=== PATIENT | male | born 1950 | race Caucasian/White ===

== ENCOUNTER 2017-07-29 06:26 | Inpatient (IN) | payer OTHER ==
[2017-07-29] VITALS (20 sets, daily range): BP systolic 51–124
[~2017-07-29] VITALS: Ht 190.5 cm; Wt 158.8 kg
[2017-07-29] MEDS ORDERED: NACL 0.9% 1,000 ML IV ONE ×6 (06:40→09:15)
[2017-07-29] MEDS ORDERED: RIVA20TA PO (07:03)
[2017-07-29] MEDS ORDERED: LISI40TA4 PO (07:03)
[2017-07-29] MEDS ORDERED: AMLO5TAB4 PO (07:03)
[2017-07-29] MEDS ORDERED: METO50TA7 PO (07:03)
[2017-07-29] MEDS ORDERED: GLUXR500 PO (07:03)
[2017-07-29 07:39] LABS: BASOPHILS % (AUTO) 0.2 % (0.0-2.0); HEMATOCRIT 51.9 % (36-54); HEMOGLOBIN 15.5 g/dL (14.0-18.0); LYMPHOCYTES # (AUTO) 0.9 K/uL (1.0-5.5); LYMPHOCYTES % (AUTO) 7.7 % (20.5-51.5); MEAN CORPUSCULAR HEMOGLOBIN 27 pg (27-31); MEAN CORPUSCULAR HGB CONC 30 % (32-36); MEAN CORPUSCULAR VOLUME 91 fL (79.0-98.0); MONOCYTES # (AUTO) 0.7 K/uL (0.0-1.0); NEUTROPHILS # (AUTO) 10.1 K/uL (1.8-7.7); NEUTROPHILS % (AUTO) 86.1 % (40.0-70.0); RED BLOOD CELL COUNT(AUTO) 5.73 MIL/uL (4.2-6.2); RED CELL DISTRIBUTION WIDTH 14.9 % (9.0-15.0); WHITE BLOOD COUNT (AUTO) 11.7 K/uL (4.8-10.8)
[2017-07-29 07:45] LABS: PLATELET COUNT (AUTO) 178 K/uL (130-430)
[2017-07-29] MEDS ORDERED: NOREPINEPHRINE 4 MG/4 ML VIAL IV ONE ×2 (07:50→13:37)
[2017-07-29] MEDS: NOREPINEPHRINE BITARTRATE 4 MG in NS 246 ML IV ONE ×2 (08:00→11:39)
[2017-07-29] MEDS ORDERED: PIPERACILLIN/TAZO 3.375 GM in NS 50 ML IV ONE (08:00)
[2017-07-29 08:01] LABS: ANION GAP 28 (5-15); CALCIUM 7.9 mg/dL (8.4-11.0); CHLORIDE 103 mmol/L (98-107); CREATININE 4.39 mg/dL (0.55-1.30); POTASSIUM 5.3 mmol/L (3.5-5.1); SODIUM SERUM 142 mmol/L (136-145); UREA NITROGEN, BLOOD 79 mg/dL (8-21)
[2017-07-29 08:11] LABS: GFR AFRICAN AMERICAN 17 mL/min (>90)
[2017-07-29 08:14] LABS: ACETAMINOPHEN 10 ug/mL (1-30); ALANINE AMINOTRANSFERASE 11 U/L (12-78); ALBUMIN 2.7 g/dL (3.4-4.8); ASPARTATE AMINOTRANSFERASE 11 U/L (10-37); TOTAL BILIRUBIN 0.9 mg/dL (0.0-1.0)
[2017-07-29 08:17] LABS: ALCOHOL, BLOOD < 3 mg/dL (<10)
[2017-07-29 08:25] LABS: ACETONE, SERUM SMALL (NEGATIVE)
[2017-07-29] MEDS ORDERED: INSULIN REGULAR, HUMAN 101.01 UNITS in NS 99 ML IV ONE ×2 (08:30)
[2017-07-29] MEDS ORDERED: PIPERACILLIN/TAZOBACTAM 3.375 GM/VIAL (ZOSYN) IV ONE (08:30)
[2017-07-29] MEDS ORDERED: MORPHINE 2 MG/ML INJ. SYRINGE IVP ONE (09:45)
[2017-07-29] MEDS ORDERED: INSULIN REGULAR, HUMAN 101.01 UNITS in NS 99 ML IV PRN ×2 (11:15)
[2017-07-29] MEDS ORDERED: SODIUM BICARBONATE 8.4% JECT 100 MEQ in 0.45% NACL 1,000 ML IV SCH (11:45)
[2017-07-29] MEDS ORDERED: NS 500 ML IV SCH (12:11)
[2017-07-29 12:15] LABS: INR 1.2 (0.80-1.20); PROTHROMBIN TIME 11.7 SECS (9.5-12.5)
[2017-07-29] MEDS ORDERED: DEXTROSE 50% JECT 50 ML DISP.SYRIN IVP PRN ×2 (12:15)
[2017-07-29] MEDS ORDERED: DEXTROSE 50% JECT 50 ML (1 AMP) IVP PRN (12:15)
[2017-07-29] MEDS ORDERED: DEXTROSE 50% JECT 25 ML (1/2 AMP) IVP PRN (12:15)
[2017-07-29] MEDS ORDERED: INSULIN REGULAR, HUMAN 100 UNITS in NS 99 ML IV PRN ×4 (12:15)
[2017-07-29] MEDS ORDERED: SODIUM BICARBONATE 8.4% JECT 50 MEQ in D5W 1,000 ML IV SCH (12:30)
[2017-07-29] MEDS ORDERED: INSULIN REGULAR, HUMAN 100 UNITS/ML, 10 ML VIAL IV ONE (12:45)
[2017-07-29 13:01] LABS: PHOSPHORUS 9.3 mg/dL (2.7-4.5)
[2017-07-29] MEDS ORDERED: DIGOXIN 0.5 MG/2 ML AMP IVP ONE ×3 (13:15→21:30)
[2017-07-29 13:42] LABS: BASOPHILS % (AUTO) 0.2 % (0.0-2.0); HEMATOCRIT 50.8 % (36-54); HEMOGLOBIN 15.5 g/dL (14.0-18.0); LYMPHOCYTES # (AUTO) 0.7 K/uL (1.0-5.5); LYMPHOCYTES % (AUTO) 5.7 % (20.5-51.5); MEAN CORPUSCULAR HEMOGLOBIN 28 pg (27-31); MEAN CORPUSCULAR HGB CONC 31 % (32-36); MEAN CORPUSCULAR VOLUME 90 fL (79.0-98.0); MONOCYTES # (AUTO) 0.5 K/uL (0.0-1.0); MONOCYTES % (AUTO) 3.8 % (1.7-9.3); NEUTROPHILS # (AUTO) 11.6 K/uL (1.8-7.7); NEUTROPHILS % (AUTO) 90.3 % (40.0-70.0); PLATELET COUNT (AUTO) 140 K/uL (130-430); RED BLOOD CELL COUNT(AUTO) 5.65 MIL/uL (4.2-6.2); RED CELL DISTRIBUTION WIDTH 15.2 % (9.0-15.0); WHITE BLOOD COUNT (AUTO) 12.8 K/uL (4.8-10.8)
[2017-07-29] MEDS: PIPERACILLIN/TAZO 3.375/DEX-IS 50 ML IV SCH ×2 (14:22→22:29)
[2017-07-29] MEDS: NOREPINEPHRINE BITARTRATE 4 MG in NS 246 ML IV PRN ×4 (14:30→21:41)
[2017-07-29 14:37] LABS: CALCIUM 7.9 mg/dL (8.4-11.0); CREATININE 4.13 mg/dL (0.55-1.30); POTASSIUM 4.1 mmol/L (3.5-5.1)
[2017-07-29] MEDS: VANCOMYCIN HCL 1,500 MG in NS 250 ML IV SCH (15:38)
[2017-07-29] MEDS: INSULIN REGULAR, HUMAN 100 UNITS in NS 99 ML IV PRN ×2 (17:46)
[2017-07-29 18:16] LABS: CALCIUM 7.9 mg/dL (8.4-11.0); CREATININE 3.86 mg/dL (0.55-1.30); PHOSPHORUS 5.2 mg/dL (2.7-4.5)
[2017-07-29] MEDS ORDERED: NACL 0.9% 1,000 ML IV SCH ×2 (19:00→23:00)
[2017-07-29] MEDS ORDERED: LORazepam 2 MG/ML VIAL IVP ONE (21:30)
[2017-07-29] MEDS ORDERED: LORazepam 2 MG/ML VIAL ONE (21:35)
[2017-07-29] MEDS ORDERED: DIGOXIN 0.5 MG/2 ML AMP ONE (21:36)
[2017-07-29 22:55] LABS: CREATININE 2.84 mg/dL (0.55-1.30); POTASSIUM 3.3 mmol/L (3.5-5.1)
[2017-07-30] VITALS (26 sets, daily range): BP systolic 84–129
[2017-07-30] MEDS ORDERED: 0.45% NACL 1,000 ML IV SCH
[2017-07-30] MEDS ORDERED: NOREPINEPHRINE 4 MG/4 ML VIAL IV ONE ×4 (00:07→15:28)
[2017-07-30] MEDS: NOREPINEPHRINE BITARTRATE 4 MG in NS 246 ML IV PRN ×3 (00:14→15:29)
[2017-07-30 01:51] LABS: BILIRUBIN,URINE 2+ (NEGATIVE); BLOOD, URINE 2+ (NEGATIVE); CLARITY/URINE SL CLOUDY (CLEAR); COLOR,URINE YELLOW (YELLOW); GLUCOSE,URINE 3+ (NEGATIVE); KETONES,URINE TRACE (NEGATIVE); LEUKOCYTE ESTERASE ,URINE NEGATIVE (NEGATIVE); NITRITE, URINE NEGATIVE (NEGATIVE); PROTEIN URINE NEGATIVE (NEGATIVE); UROBILINOGEN,URINE 0.2 (0.2-1.0)
[2017-07-30 02:11] LABS: BARBITURATE, URINE NEGATIVE (NEG <=200); BENZODIAZEPINE, URINE NEGATIVE (NEG <=150); CANNABINOID, URINE NEGATIVE (NEG <=50); COCAINE, URINE NEGATIVE (NEG <=150); METHAMPHETAMINES SCREEN,URINE NEGATIVE (NEG <=500); OPIATE, URINE NEGATIVE (NEG <=100); PHENCYCLIDINE SCREEN,URINE NEGATIVE (NEG <=25); UR TRICYCLIC ANTIDEPRESSANTS NEGATIVE (NEG <=300); URINE AMPHETAMINE NEGATIVE (NEG <=500); URINE METHADONE NEGATIVE (NEG <=200); URINE OXYCODONE SCREEN NEGATIVE (NEG <=100); URINE PROPOXYPHENE SCREEN NEGATIVE (NEG <=300)
[2017-07-30 02:22] LABS: CALCIUM 8.3 mg/dL (8.4-11.0); CREATININE 2.9 mg/dL (0.55-1.30); POTASSIUM 3.7 mmol/L (3.5-5.1)
[2017-07-30 02:29] LABS: RBC,URINE 0-3 /HPF (0-3); WBC,URINE 0-3 /HPF (0-3)
[2017-07-30 02:30] LABS: BACTERIA,URINE FEW /HPF (None Seen); MUCUS,URINE None Seen /LPF (None Seen); URINE AMORPHOUS URATE 1+ /HPF (None Seen)
[2017-07-30] MEDS: D5W 1,000 ML IV SCH ×2 (02:53→17:31)
[2017-07-30] MEDS: PIPERACILLIN/TAZO 3.375/DEX-IS 50 ML IV SCH ×3 (05:06→21:27)
[2017-07-30] MEDS ORDERED: LORazepam 2 MG/ML VIAL IVP PRN (06:45)
[2017-07-30 06:49] LABS: CALCIUM 7.9 mg/dL (8.4-11.0); CREATININE 2.72 mg/dL (0.55-1.30); POTASSIUM 3.5 mmol/L (3.5-5.1)
[2017-07-30 07:11] LABS: ALBUMIN 2.3 g/dL (3.4-4.8); TOTAL BILIRUBIN 0.7 mg/dL (0.0-1.0)
[2017-07-30] MEDS ORDERED: FUROSEMIDE 20 MG/2 ML VIAL IVP ONE (08:00)
[2017-07-30] MEDS ORDERED: DIGOXIN 0.5 MG/2 ML AMP ONE (08:16)
[2017-07-30] MEDS ORDERED: AMIODARONE HCL 150 MG in D5W 100 ML IV ONE (08:45)
[2017-07-30] MEDS: AMIODARONE HCL 900 MG in D5W 482 ML IV SCH (10:18)
[2017-07-30] MEDS ORDERED: MIDAZOLAM HCL 5 MG/5 ML VIAL ONE (11:07)
[2017-07-30 11:18] LABS: CALCIUM 7.9 mg/dL (8.4-11.0); CREATININE 2.98 mg/dL (0.55-1.30); POTASSIUM 4.7 mmol/L (3.5-5.1)
[2017-07-30] MEDS ORDERED: PANTOPRAZOLE SODIUM 40 MG/VIAL (PROTONIX) IVP ONE (11:45)
[2017-07-30] MEDS ORDERED: CLINDAMYCIN 600 MG in D5W 50 ML IV SCH (12:00)
[2017-07-30] MEDS: LORazepam 2 MG/ML VIAL IVP PRN ×2 (12:20→23:53)
[2017-07-30] MEDS: ASPIRIN 81 MG TAB.CHEW PO SCH ×2 (12:20→12:46)
[2017-07-30] MEDS ORDERED: ETOMIDATE 20 MG/ 10 ML VIAL (AMIDATE) IVP ONE (14:00)
[2017-07-30] MEDS: RIVAROXABAN 15 MG TABLET PO SCH (17:53)
[2017-07-30] MEDS ORDERED: RIVAROXABAN 20 MG TABLET PO SCH (18:00)
[2017-07-30] MEDS: INSULIN REGULAR, HUMAN 100 UNITS in NS 99 ML IV PRN ×2 (18:44)
[2017-07-30] MEDS ORDERED: INSULIN REGULAR, HUMAN 100 UNITS in NS 99 ML IV PRN ×2 (19:15)
[2017-07-30 21:44] LABS: CALCIUM 7.8 mg/dL (8.4-11.0); CREATININE 3.46 mg/dL (0.55-1.30); POTASSIUM 3.7 mmol/L (3.5-5.1)
[2017-07-30] MEDS ORDERED: INSULIN REGULAR, HUMAN 100 UNITS/ML, 10 ML VIAL IVP ONE (22:15)
[2017-07-31] VITALS (28 sets, daily range): BP systolic 92–121
[2017-07-31 01:34] LABS: POTASSIUM 3.5 mmol/L (3.5-5.1)
[2017-07-31 01:35] LABS: CREATININE 3.46 mg/dL (0.55-1.30)
[2017-07-31] MEDS ORDERED: NS 500 ML IV ONE ×2 (02:45→14:00)
[2017-07-31] MEDS: D5W 1,000 ML IV SCH ×2 (04:20→11:14)
[2017-07-31] MEDS: PIPERACILLIN/TAZO 3.375/DEX-IS 50 ML IV SCH ×3 (06:22→22:05)
[2017-07-31 07:23] LABS: BASOPHILS % (AUTO) 0.1 % (0.0-2.0); EOSINOPHILS # (AUTO) 0.1 K/uL (0.0-0.4); EOSINOPHILS % (AUTO) 1.1 % (0.0-4.0); HEMATOCRIT 47.1 % (36-54); HEMOGLOBIN 14.9 g/dL (14.0-18.0); LYMPHOCYTES # (AUTO) 1.8 K/uL (1.0-5.5); LYMPHOCYTES % (AUTO) 16.8 % (20.5-51.5); MEAN CORPUSCULAR HEMOGLOBIN 27 pg (27-31); MEAN CORPUSCULAR HGB CONC 32 % (32-36); MEAN CORPUSCULAR VOLUME 85 fL (79.0-98.0); MONOCYTES # (AUTO) 0.8 K/uL (0.0-1.0); MONOCYTES % (AUTO) 7.7 % (1.7-9.3); NEUTROPHILS # (AUTO) 7.8 K/uL (1.8-7.7); NEUTROPHILS % (AUTO) 74.3 % (40.0-70.0); PLATELET COUNT (AUTO) 120 K/uL (130-430); RED BLOOD CELL COUNT(AUTO) 5.55 MIL/uL (4.2-6.2); WHITE BLOOD COUNT (AUTO) 10.5 K/uL (4.8-10.8)
[2017-07-31 07:28] LABS: CALCIUM 8.1 mg/dL (8.4-11.0); CREATININE 3.33 mg/dL (0.55-1.30); POTASSIUM 3.7 mmol/L (3.5-5.1)
[2017-07-31] MEDS: NOREPINEPHRINE BITARTRATE 4 MG in NS 246 ML IV PRN (08:05)
[2017-07-31] MEDS: PANTOPRAZOLE SODIUM 40 MG/VIAL (PROTONIX) IVP SCH (08:10)
[2017-07-31] MEDS: AMIODARONE HCL 900 MG in D5W 482 ML IV SCH (08:42)
[2017-07-31] MEDS ORDERED: MORPHINE 2 MG/ML INJ. SYRINGE IVP PRN (09:30)
[2017-07-31 11:06] LABS: CALCIUM 7.6 mg/dL (8.4-11.0); CREATININE 3.36 mg/dL (0.55-1.30); POTASSIUM 3.7 mmol/L (3.5-5.1)
[2017-07-31 11:10] LABS: ALBUMIN 2.1 g/dL (3.4-4.8); PHOSPHORUS 3.3 mg/dL (2.7-4.5); TOTAL BILIRUBIN 1.4 mg/dL (0.0-1.0)
[2017-07-31] MEDS ORDERED: DOPamine PREMIX 250 ML IV PRN (12:00)
[2017-07-31] MEDS ORDERED: INSULIN REGULAR, HUMAN 100 UNITS in NS 99 ML IV PRN ×2 (13:45)
[2017-07-31] MEDS: VANCOMYCIN HCL 1,500 MG in NS 250 ML IV SCH (14:05)
[2017-07-31] MEDS: 0.45% NACL 1,000 ML IV SCH (16:33)
[2017-07-31] MEDS: LORazepam 2 MG/ML VIAL IVP PRN (17:35)
[2017-07-31] MEDS: RIVAROXABAN 15 MG TABLET PO SCH (17:35)
[2017-08-01] VITALS (32 sets, daily range): BP systolic 107–144
[2017-08-01] MEDS: PIPERACILLIN/TAZO 3.375/DEX-IS 50 ML IV SCH ×3 (05:57→21:55)
[2017-08-01] MEDS: 0.45% NACL 1,000 ML IV SCH (05:58)
[2017-08-01 06:30] LABS: ALBUMIN 1.9 g/dL (3.4-4.8); CALCIUM 7.6 mg/dL (8.4-11.0); CREATININE 2.29 mg/dL (0.55-1.30); POTASSIUM 3.6 mmol/L (3.5-5.1); TOTAL BILIRUBIN 1.5 mg/dL (0.0-1.0)
[2017-08-01 06:51] LABS: BASOPHILS % (AUTO) 0.3 % (0.0-2.0); EOSINOPHILS # (AUTO) 0.2 K/uL (0.0-0.4); EOSINOPHILS % (AUTO) 1.8 % (0.0-4.0); HEMATOCRIT 37.8 % (36-54); HEMOGLOBIN 12.6 g/dL (14.0-18.0); LYMPHOCYTES # (AUTO) 1.5 K/uL (1.0-5.5); LYMPHOCYTES % (AUTO) 15.7 % (20.5-51.5); MEAN CORPUSCULAR HEMOGLOBIN 28 pg (27-31); MEAN CORPUSCULAR HGB CONC 33 % (32-36); MEAN CORPUSCULAR VOLUME 84 fL (79.0-98.0); MONOCYTES # (AUTO) 0.6 K/uL (0.0-1.0); MONOCYTES % (AUTO) 5.7 % (1.7-9.3); NEUTROPHILS # (AUTO) 7.4 K/uL (1.8-7.7); RED CELL DISTRIBUTION WIDTH 13.6 % (9.0-15.0); WHITE BLOOD COUNT (AUTO) 9.7 K/uL (4.8-10.8)
[2017-08-01] MEDS: PANTOPRAZOLE SODIUM 40 MG/VIAL (PROTONIX) IVP SCH (08:02)
[2017-08-01] MEDS: ASPIRIN 81 MG TAB.CHEW PO SCH (08:02)
[2017-08-01 09:56] LABS: PLATELET COUNT (AUTO) 59 K/uL (130-430)
[2017-08-01 09:57] LABS: NEUTROPHILS % (AUTO) 76.5 % (40.0-70.0)
[2017-08-01] MEDS: D5W 1,000 ML IV SCH ×3 (11:58→21:56)
[2017-08-01] MEDS: AMIODARONE HCL 900 MG in D5W 482 ML IV SCH (14:31)
[2017-08-01] MEDS: RIVAROXABAN 15 MG TABLET PO SCH (17:39)
[2017-08-01] MEDS: INSULIN REGULAR, HUMAN 100 UNITS in NS 99 ML IV PRN ×2 (20:07)
[2017-08-01] MEDS ORDERED: METOPROLOL SUCCINATE 50 MG TAB.SR.24H (TOPROL XL) PO ONE (22:00)
[2017-08-02] VITALS (32 sets, daily range): BP systolic 11–150
[2017-08-02] MEDS: PIPERACILLIN/TAZO 3.375/DEX-IS 50 ML IV SCH (05:54)
[2017-08-02 06:22] LABS: BASOPHILS % (AUTO) 0.2 % (0.0-2.0); EOSINOPHILS # (AUTO) 0.2 K/uL (0.0-0.4); EOSINOPHILS % (AUTO) 1.4 % (0.0-4.0); HEMATOCRIT 37.8 % (36-54); HEMOGLOBIN 12.5 g/dL (14.0-18.0); LYMPHOCYTES # (AUTO) 1.2 K/uL (1.0-5.5); LYMPHOCYTES % (AUTO) 9.5 % (20.5-51.5); MEAN CORPUSCULAR HEMOGLOBIN 28 pg (27-31); MEAN CORPUSCULAR HGB CONC 33 % (32-36); MEAN CORPUSCULAR VOLUME 84 fL (79.0-98.0); MONOCYTES # (AUTO) 0.6 K/uL (0.0-1.0); MONOCYTES % (AUTO) 4.9 % (1.7-9.3); NEUTROPHILS # (AUTO) 10.6 K/uL (1.8-7.7); PLATELET COUNT (AUTO) 58 K/uL (130-430); RED CELL DISTRIBUTION WIDTH 13.4 % (9.0-15.0); WHITE BLOOD COUNT (AUTO) 12.6 K/uL (4.8-10.8)
[2017-08-02 06:46] LABS: ALBUMIN 1.8 g/dL (3.4-4.8); CALCIUM 7.5 mg/dL (8.4-11.0); CREATININE 1.7 mg/dL (0.55-1.30); PHOSPHORUS 2.7 mg/dL (2.7-4.5); POTASSIUM 3.3 mmol/L (3.5-5.1); TOTAL BILIRUBIN 1.4 mg/dL (0.0-1.0)
[2017-08-02] MEDS ORDERED: POTASSIUM CHLORIDE 20 MEQ/PKT PACKET PO ONE (08:30)
[2017-08-02] MEDS: ASPIRIN 81 MG TAB.CHEW PO SCH (09:05)
[2017-08-02] MEDS: METOPROLOL SUCCINATE 50 MG TAB.SR.24H (TOPROL XL) PO SCH ×2 (09:06→20:59)
[2017-08-02] MEDS: PANTOPRAZOLE SODIUM 40 MG/VIAL (PROTONIX) IVP SCH (09:08)
[2017-08-02] MEDS: INSULIN REGULAR, HUMAN 100 UNITS in NS 99 ML IV PRN ×2 (15:15)
[2017-08-02] MEDS: D5W 1,000 ML IV SCH (16:40)
[2017-08-02 18:09] LABS: LEGIONELLA PNEUMOPHILIA AB <0.91 OD ratio (0.00-0.90)
[2017-08-02] MEDS: IPRATROPIUM/ALBUTEROL SULFATE 3 ML AMPUL.NEB INH PRN (20:08)
[2017-08-02] MEDS: cefTRIAXone 1 GM in D5W 50 ML IV SCH (20:58)
[2017-08-02 21:26] LABS: MYCOPLASMA PNEUMONIAE IgM <770 U/mL (0-769)
[2017-08-02] MEDS: metroNIDAZOLE 250 mg/NS 50 ML IV SCH (21:37)
[2017-08-03] VITALS (29 sets, daily range): BP systolic 99–146
[2017-08-03] MEDS: D5W 1,000 ML IV SCH ×3 (01:44→21:20)
[2017-08-03] MEDS: metroNIDAZOLE 250 mg/NS 50 ML IV SCH ×3 (05:55→21:04)
[2017-08-03 06:25] LABS: BASOPHILS % (AUTO) 0.2 % (0.0-2.0); EOSINOPHILS # (AUTO) 0.2 K/uL (0.0-0.4); EOSINOPHILS % (AUTO) 1.8 % (0.0-4.0); HEMATOCRIT 37.8 % (36-54); HEMOGLOBIN 12.3 g/dL (14.0-18.0); LYMPHOCYTES # (AUTO) 1.1 K/uL (1.0-5.5); LYMPHOCYTES % (AUTO) 9.7 % (20.5-51.5); MEAN CORPUSCULAR HEMOGLOBIN 28 pg (27-31); MEAN CORPUSCULAR HGB CONC 32 % (32-36); MEAN CORPUSCULAR VOLUME 85 fL (79.0-98.0); MONOCYTES # (AUTO) 0.6 K/uL (0.0-1.0); MONOCYTES % (AUTO) 5.5 % (1.7-9.3); NEUTROPHILS # (AUTO) 9.2 K/uL (1.8-7.7); NEUTROPHILS % (AUTO) 82.8 % (40.0-70.0); PLATELET COUNT (AUTO) 74 K/uL (130-430); RED BLOOD CELL COUNT(AUTO) 4.47 MIL/uL (4.2-6.2); RED CELL DISTRIBUTION WIDTH 13.5 % (9.0-15.0); WHITE BLOOD COUNT (AUTO) 11.1 K/uL (4.8-10.8)
[2017-08-03] MEDS: INSULIN REGULAR, HUMAN 100 UNITS in NS 99 ML IV PRN ×2 (06:46)
[2017-08-03 07:04] LABS: ALBUMIN 1.8 g/dL (3.4-4.8); CALCIUM 7.7 mg/dL (8.4-11.0); CREATININE 1.35 mg/dL (0.55-1.30); POTASSIUM 3.6 mmol/L (3.5-5.1)
[2017-08-03] MEDS: METOPROLOL SUCCINATE 50 MG TAB.SR.24H (TOPROL XL) PO SCH ×2 (08:02→20:17)
[2017-08-03] MEDS: ASPIRIN 81 MG TAB.CHEW PO SCH (08:02)
[2017-08-03] MEDS: PANTOPRAZOLE SODIUM 40 MG/VIAL (PROTONIX) IVP SCH (08:03)
[2017-08-03] MEDS: cefTRIAXone 1 GM in D5W 50 ML IV SCH (20:09)
[2017-08-04] VITALS (16 sets, daily range): BP systolic 112–137
[2017-08-04] MEDS: metroNIDAZOLE 250 mg/NS 50 ML IV SCH ×3 (05:12→23:35)
[2017-08-04] MEDS: D5W 1,000 ML IV SCH ×2 (05:13→17:25)
[2017-08-04 06:25] LABS: BASOPHILS % (AUTO) 0.3 % (0.0-2.0); EOSINOPHILS # (AUTO) 0.3 K/uL (0.0-0.4); EOSINOPHILS % (AUTO) 3.4 % (0.0-4.0); HEMOGLOBIN 11.4 g/dL (14.0-18.0); LYMPHOCYTES # (AUTO) 1.1 K/uL (1.0-5.5); MEAN CORPUSCULAR HEMOGLOBIN 28 pg (27-31); MEAN CORPUSCULAR HGB CONC 33 % (32-36); MEAN CORPUSCULAR VOLUME 85 fL (79.0-98.0); MONOCYTES # (AUTO) 0.7 K/uL (0.0-1.0); MONOCYTES % (AUTO) 7.8 % (1.7-9.3); NEUTROPHILS # (AUTO) 7.3 K/uL (1.8-7.7); NEUTROPHILS % (AUTO) 76.5 % (40.0-70.0); PLATELET COUNT (AUTO) 103 K/uL (130-430); RED BLOOD CELL COUNT(AUTO) 4.14 MIL/uL (4.2-6.2); RED CELL DISTRIBUTION WIDTH 13.6 % (9.0-15.0); WHITE BLOOD COUNT (AUTO) 9.4 K/uL (4.8-10.8)
[2017-08-04 06:46] LABS: ALBUMIN 1.6 g/dL (3.4-4.8); CALCIUM 7.3 mg/dL (8.4-11.0); CREATININE 1.2 mg/dL (0.55-1.30); POTASSIUM 3.4 mmol/L (3.5-5.1); TOTAL BILIRUBIN 0.8 mg/dL (0.0-1.0)
[2017-08-04] MEDS: INSULIN REGULAR, HUMAN 100 UNITS in NS 99 ML IV PRN ×4 (07:20→08:00)
[2017-08-04] MEDS: ASPIRIN 81 MG TAB.CHEW PO SCH (08:47)
[2017-08-04] MEDS: METOPROLOL SUCCINATE 50 MG TAB.SR.24H (TOPROL XL) PO SCH ×2 (08:48→22:03)
[2017-08-04] MEDS: PANTOPRAZOLE SODIUM 40 MG/VIAL (PROTONIX) IVP SCH (09:17)
[2017-08-04] MEDS: INSULIN REGULAR, HUMAN 100 UNITS/ML, 10 ML VIAL (novoLIN R) SUBCUT PRN ×2 (14:43→17:32)
[2017-08-04] MEDS: RIVAROXABAN 15 MG TABLET PO SCH (17:26)
[2017-08-04] MEDS: cefTRIAXone 1 GM in D5W 50 ML IV SCH (22:03)
[2017-08-05] VITALS (7 sets, daily range): BP systolic 112–146
[2017-08-05] MEDS: D5W 1,000 ML IV SCH ×2 (01:30→05:22)
[2017-08-05] MEDS: metroNIDAZOLE 250 mg/NS 50 ML IV SCH ×3 (05:25→23:13)
[2017-08-05] MEDS: INSULIN REGULAR, HUMAN 100 UNITS/ML, 10 ML VIAL (novoLIN R) SUBCUT PRN ×3 (06:03→17:31)
[2017-08-05 07:00] LABS: BASOPHILS % (AUTO) 0.3 % (0.0-2.0); EOSINOPHILS # (AUTO) 0.3 K/uL (0.0-0.4); EOSINOPHILS % (AUTO) 3.2 % (0.0-4.0); HEMATOCRIT 36.1 % (36-54); HEMOGLOBIN 11.7 g/dL (14.0-18.0); LYMPHOCYTES # (AUTO) 1.4 K/uL (1.0-5.5); LYMPHOCYTES % (AUTO) 16.1 % (20.5-51.5); MEAN CORPUSCULAR HEMOGLOBIN 27 pg (27-31); MEAN CORPUSCULAR HGB CONC 32 % (32-36); MEAN CORPUSCULAR VOLUME 85 fL (79.0-98.0); MONOCYTES # (AUTO) 0.7 K/uL (0.0-1.0); MONOCYTES % (AUTO) 7.8 % (1.7-9.3); NEUTROPHILS # (AUTO) 6.3 K/uL (1.8-7.7); NEUTROPHILS % (AUTO) 72.6 % (40.0-70.0); PLATELET COUNT (AUTO) 161 K/uL (130-430); RED BLOOD CELL COUNT(AUTO) 4.27 MIL/uL (4.2-6.2); RED CELL DISTRIBUTION WIDTH 13.4 % (9.0-15.0); WHITE BLOOD COUNT (AUTO) 8.7 K/uL (4.8-10.8)
[2017-08-05 07:35] LABS: ALBUMIN 1.5 g/dL (3.4-4.8); CALCIUM 7.7 mg/dL (8.4-11.0); TOTAL BILIRUBIN 0.5 mg/dL (0.0-1.0)
[2017-08-05 07:46] LABS: POTASSIUM 2.7 mmol/L (3.5-5.1)
[2017-08-05] MEDS: KCL 40mEq in D5/0.45NS 1000 mL 1,000 ML IV SCH ×3 (09:40→21:11)
[2017-08-05] MEDS: METOPROLOL SUCCINATE 50 MG TAB.SR.24H (TOPROL XL) PO SCH ×2 (09:42→21:10)
[2017-08-05] MEDS: ASPIRIN 81 MG TAB.CHEW PO SCH (09:43)
[2017-08-05] MEDS: PANTOPRAZOLE SODIUM 40 MG/VIAL (PROTONIX) IVP SCH (09:43)
[2017-08-05] MEDS: IPRATROPIUM/ALBUTEROL SULFATE 3 ML AMPUL.NEB INH PRN (16:00)
[2017-08-05] MEDS: RIVAROXABAN 15 MG TABLET PO SCH (17:32)
[2017-08-05] MEDS: cefTRIAXone 1 GM in D5W 50 ML IV SCH (21:12)
[2017-08-06 00:08] VITALS: BP_SYST 142
[2017-08-06 04:11] VITALS: BP_SYST 135
[2017-08-06] MEDS: metroNIDAZOLE 250 mg/NS 50 ML IV SCH (05:01)
[2017-08-06 06:41] LABS: BASOPHILS % (AUTO) 0.3 % (0.0-2.0); EOSINOPHILS # (AUTO) 0.2 K/uL (0.0-0.4); HEMATOCRIT 35.3 % (36-54); HEMOGLOBIN 11.9 g/dL (14.0-18.0); LYMPHOCYTES # (AUTO) 1.4 K/uL (1.0-5.5); LYMPHOCYTES % (AUTO) 17.7 % (20.5-51.5); MEAN CORPUSCULAR HEMOGLOBIN 28 pg (27-31); MEAN CORPUSCULAR HGB CONC 34 % (32-36); MEAN CORPUSCULAR VOLUME 83 fL (79.0-98.0); MONOCYTES # (AUTO) 0.6 K/uL (0.0-1.0); MONOCYTES % (AUTO) 7.6 % (1.7-9.3); NEUTROPHILS # (AUTO) 5.9 K/uL (1.8-7.7); NEUTROPHILS % (AUTO) 71.4 % (40.0-70.0); PLATELET COUNT (AUTO) 185 K/uL (130-430); RED BLOOD CELL COUNT(AUTO) 4.23 MIL/uL (4.2-6.2); RED CELL DISTRIBUTION WIDTH 13.2 % (9.0-15.0); WHITE BLOOD COUNT (AUTO) 8.1 K/uL (4.8-10.8)
[2017-08-06 06:43] LABS: ALBUMIN 1.5 g/dL (3.4-4.8); CALCIUM 7.3 mg/dL (8.4-11.0); CREATININE 0.99 mg/dL (0.55-1.30); TOTAL BILIRUBIN 0.4 mg/dL (0.0-1.0)
[2017-08-06 06:56] LABS: POTASSIUM 2.9 mmol/L (3.5-5.1)
[2017-08-06] MEDS ORDERED: POTASSIUM CHLORIDE 20 MEQ TAB.PRT.SR PO ONE (08:00)
[2017-08-06] MEDS ORDERED: POTASSIUM CHLORIDE 20 MEQ in NS 250 ML IV ONE (08:00)
[2017-08-06 08:12] VITALS: BP_SYST 145
[2017-08-06] MEDS: ASPIRIN 81 MG TAB.CHEW PO SCH (09:39)
[2017-08-06] MEDS: PANTOPRAZOLE SODIUM 40 MG/VIAL (PROTONIX) IVP SCH (09:40)
[2017-08-06] MEDS: METOPROLOL SUCCINATE 50 MG TAB.SR.24H (TOPROL XL) PO SCH (09:40)
[2017-08-06] MEDS: KCL 40mEq in D5/0.45NS 1000 mL 1,000 ML IV SCH (09:41)
[2017-08-06] MEDS: INSULIN REGULAR, HUMAN 100 UNITS/ML, 10 ML VIAL (novoLIN R) SUBCUT PRN (12:28)
[2017-08-06 12:50] VITALS: BP_SYST 144
[2017-08-06 14:29] VITALS: BP_SYST 144
[2017-08-06 16:00] VITALS: BP_SYST 139
== END 2017-08-06 15:32 | DRG 871 ==
LOC: SED 06:26 → SIC 09:06 → STU 08-04 13:44
PROC: 5A1945Z Respiratory Ventilation, 24-96 Consecutive Hours (ICD-10-PCS; principal; 2017-07-30)
PROC: 02HV33Z Insertion of Infusion Device into Superior Vena Cava, Percutaneous Approach (ICD-10-PCS; 2017-07-30)
PROC: 0BH17EZ Insertion of Endotracheal Airway into Trachea, Via Natural or Artificial Opening (ICD-10-PCS; 2017-07-30)
PROC: 5A09357 Assistance with Respiratory Ventilation, Less than 24 Consecutive Hours, Continuous Positive Airway Pressure (ICD-10-PCS; 2017-07-30)
DX: A41.9 Sepsis, unspecified organism (principal); J96.01 Acute respiratory failure with hypoxia; N17.0 Acute kidney failure with tubular necrosis; R65.21 Severe sepsis with septic shock; J69.0 Pneumonitis due to inhalation of food and vomit; I95.9 Hypotension, unspecified; J96.02 Acute respiratory failure with hypercapnia; E87.0 Hyperosmolality and hypernatremia; E11.10 Type 2 diabetes mellitus with ketoacidosis without coma; E66.01 Morbid (severe) obesity due to excess calories; E86.0 Dehydration; E11.9 Type 2 diabetes mellitus without complications; N39.0 Urinary tract infection, site not specified; E87.6 Hypokalemia; I48.91 Unspecified atrial fibrillation; E78.00 Pure hypercholesterolemia, unspecified; E78.5 Hyperlipidemia, unspecified; I10 Essential (primary) hypertension; Z79.01 Long term (current) use of anticoagulants; Z83.3 Family history of diabetes mellitus; Z85.46 Personal history of malignant neoplasm of prostate; Z68.41 Body mass index [BMI] 40.0-44.9, adult
CPT/HCPCS: 36415; 36600; 70450-TC; 71010; 80048; 80053; 80307; 81000-TC; 82009-TC; 82803-TC; 82947-TC; 82962; 83605; 83735-TC; 83880; 84100-TC; 84302-TC; 84484; 84681; 85025; 85610-TC; 85730-TC; 86713; 86738; 87040-TC; 87070-TC; 87081; 87086; 87205-TC; 92610-GN; 93005; 93306; 94002; 94003; 94010; 94640; 94660; 97110-GP; 97116-GP; 97530-GP; 99291; A6209; C1751; C9113; G0480; G0481; G0482; J0282; J0696; J1160; J1265; J1815; J2060; J2250; J2270; J2543; J3370; J3480; J3490; J7030; J7040; J7042; J7050; J7060; J7120